=== PATIENT | male | born 1980 | race Caucasian/White ===

== ENCOUNTER 2023-01-03 21:54 | Emergency (ER) | payer BC ==
[2023-01-03] MEDS ORDERED: Erythromycin Base 0.5% Ophth Oint 1 GM Tube EYERT ONE (23:18)
== END 2023-01-03 23:37 | disposition home or self-care (01) ==
LOC: MW.ED 21:54
DX: H10.9 Unspecified conjunctivitis (principal)
CPT/HCPCS: 99283; A9270